=== PATIENT | female | born 1975 | race Caucasian/White ===

== ENCOUNTER → 2017-09-25 | Outpatient (CLI) | payer OTHER | END | disposition home or self-care (01) | LOC: C.LABSPEC 15:52 | PROVIDERS: ATTEND Obstetrics & Gynecology | DX: O09.523 Supervision of elderly multigravida, third trimester (principal) ==

== ENCOUNTER → 2017-09-26 | Outpatient (CLI) | payer OTHER ==
[2017-09-26 11:07] LABS: BASO % 0.2 %; BASO ABS # 0.02 K/uL (0-0.2); EOS % 1.4 %; EOS ABS # 0.15 K/uL (0-0.5); HEMATOCRIT 32.7 % (37-47); HEMOGLOBIN 10.3 g/dL (12.0-16.0); IG# 0.08 K/uL (0.00-0.02); LYMPH ABS # 2.51 K/uL (1.2-3.4); MEAN CELL VOLUME 79.6 fL (80-100); MEAN CORPUSCULAR HEMOGLOBIN 25.1 pg (25-34); MEAN CORPUSCULAR HGB CONC 31.5 g/dl (32-36); MEAN PLATELET VOLUME 10.9 fL (7.4-10.4); MONO % 7.1 %; MONO ABS # 0.78 K/uL (0.11-0.59); NEUT % 67.6 %; NEUT ABS # 7.38 K/uL (1.4-6.5); PLATELET COUNT 318 K/uL (130-400); RED CELL DISTRIBUTION WIDTH CV 16.6 % (11.5-14.5); WHITE BLOOD COUNT 10.92 K/uL (4.8-10.8)
== END | disposition home or self-care (01) ==
LOC: EDSTATUS 09-25 13:18 → C.LAB1850 09-25 16:41 → EDSTATUS 09-25 17:01 → C.LAB1850 09:58
PROVIDERS: ATTEND Obstetrics & Gynecology
DX: O09.523 Supervision of elderly multigravida, third trimester (principal); Z3A.00 Weeks of gestation of pregnancy not specified

== ENCOUNTER 2017-10-09 05:43 | Inpatient (IN) | payer OTHER ==
[~2017-10-09] VITALS: Ht 154.9 cm; Wt 95.0 kg
[2017-10-09] VITALS (11 sets, daily range): BP systolic 104–110; BP diastolic 59–65; PULSE 79–102; TEMP 36.3–37.4; O2SAT 94–97; Ht 154.9 cm; Wt 95.0 kg
[~2017-10-09 05:43] MED LIST: CEFAZOLIN IV 2,000 MG in SYRINGE 0 ML IV SCH; CITRIC ACID/SODIUM CITRATE 15 ML UDC PO SCH; LACTATED RINGER'S 1000ML 1,000 ML IV SCH; PATIENT'S ALLERGY INFO NEEDS ENTERED SCH
[2017-10-09] MEDS ORDERED: CITRIC ACID/SODIUM CITRATE 15 ML UDC PO SCH (06:00)
[2017-10-09] MEDS ORDERED: LACTATED RINGER'S 1000ML 1,000 ML IV SCH ×3 (06:08→12:30)
[2017-10-09] MEDS ORDERED: [UNRECOGNIZED DRUG - REMARK] (06:23)
[2017-10-09] MEDS ORDERED: CEFAZOLIN IV 2,000 MG in SYRINGE 0 ML IV SCH (06:30)
[2017-10-09 06:54] LABS: BASO % 0.2 %; BASO ABS # 0.02 K/uL (0-0.2); EOS % 1.7 %; EOS ABS # 0.18 K/uL (0-0.5); HEMOGLOBIN 9.8 g/dL (12.0-16.0); IG# 0.06 K/uL (0.00-0.02); LYMPH % 25.6 %; LYMPH ABS # 2.64 K/uL (1.2-3.4); MEAN CELL VOLUME 77.9 fL (80-100); MEAN CORPUSCULAR HEMOGLOBIN 24.6 pg (25-34); MEAN CORPUSCULAR HGB CONC 31.6 g/dl (32-36); MEAN PLATELET VOLUME 10.3 fL (7.4-10.4); MONO % 8.1 %; MONO ABS # 0.84 K/uL (0.11-0.59); NEUT % 63.8 %; NEUT ABS # 6.57 K/uL (1.4-6.5); PLATELET COUNT 307 K/uL (130-400); RED CELL DISTRIBUTION WIDTH CV 16.3 % (11.5-14.5); RED CELL DISTRIBUTION WIDTH SD 46.9 fL (36.4-46.3); WHITE BLOOD COUNT 10.31 K/uL (4.8-10.8)
[2017-10-09] MEDS ORDERED: OXYTOCIN INJ 10 UNITS/ML VIAL ONE (07:18)
[2017-10-09] MEDS ORDERED: FENTANYL CITRATE INJ 50 MCG/1 ML 2 ML VIAL ONE (07:20)
[2017-10-09] MEDS ORDERED: MoRPHine SULFATE PF 1 MG/ML 10 ML AMP/VIAL ONE (07:21)
--- NOTE | 2017-10-09 09:32 | HISTORY & PHYSICAL EXAMINATION ---
DATE OF ADMISSION: 10/09/2017 PREOPERATIVE DIAGNOSES: Prior section and pena intrauterine at term. HISTORY OF PRESENT ILLNESS: This is a 42-year-old, G5, P4-0-0-4 who presents with a pena intrauterine at 39 weeks. She has a history of 2 prior sections, both done [facility]; prior vaginal deliveries, both in [place]. This has been complicated by advanced maternal age and maternal smoking of 1 pack per day. ALLERGIES: No known drugs. MEDICATIONS: None. PAST MEDICAL HISTORY: Gallstones. PAST SURGICAL HISTORY: Cholecystectomy and x2. LABORATORY: Blood type A positive, rubella immune, group B Strep negative. PHYSICAL EXAMINATION: VITAL SIGNS: Within normal limits. heart tones are category 1. Toca was quiet. The patient is gravid, in no acute distress. Cervical exam is deferred. ASSESSMENT AND PLAN: A 42-year-old, G5, P4, with 2 prior sections for repeat section at term.
[2017-10-09] MEDS ORDERED: MIDAZOLAM HCL 1 MG/ML 2ML VIAL ONE (11:22)
[2017-10-09] MEDS ORDERED: PHENYLEPHRINE HCL INJ 10 MG/ML VIAL ONE (11:25)
[2017-10-09] MEDS ORDERED: DiphenhydrAMINE HCL 50 MG/ML VIAL ONE (11:27)
[2017-10-09] MEDS ORDERED: [UNRECOGNIZED DRUG - OTHER] IV SCH (11:41)
[2017-10-09] MEDS ORDERED: OXYTOCIN IV SCH (11:41)
--- NOTE | 2017-10-09 11:43 | [facility] Post Operative Brief Note ---
Immediate Operative Summary Operative Date Oct 09, 2017. Pre-Operative Diagnosis Term - Repeat Caesarean Section Post-Operative Diagnosis Same as Pre-op. Procedure(s) Performed Repeat Caesarean Section for a live male infant @ 1109. Surgeon Dr Johnson Pest Controller Surgeon(s) Dr Marin Estimated Blood Loss 700 Findings Consistent with Post-Op Diagnosis Specimens Placenta-HOLD Cord Blood Drains None Anesthesia Type Spinal Complication(s) none Disposition Accompanied Pt To Recover: yes Disposition: L&D
[2017-10-09] MEDS ORDERED: IBUPROFEN 600 MG TAB PO PRN (11:45)
[2017-10-09] MEDS ORDERED: OXYCODONE/ACETAMINOPHEN 5-325 TAB PO PRN ×2 (11:45)
[2017-10-09] MEDS ORDERED: LANOLIN OINT EXT PRN ×2 (11:45)
[2017-10-09] MEDS ORDERED: BENZOCAINE 20% AER SPR 82.5 GM CAN EXT PRN ×2 (11:45)
[2017-10-09] MEDS ORDERED: KETOROLAC TROMETHAMINE 30 MG/ML VIAL IV. PRN (11:45)
[2017-10-09] MEDS ORDERED: HYDROCORTISONE ACETATE 25 MG SUPP PR PRN ×2 (11:45)
[2017-10-09] MEDS ORDERED: SUPERCREAM 0.870 % 15GM JAR EXT PRN ×2 (11:45)
[2017-10-09] MEDS ORDERED: DiphenhydrAMINE HCL 50 MG/ML VIAL IV PRN ×2 (11:45→12:00)
--- NOTE | 2017-10-09 11:48 | [facility] Post Operative Brief Note ---
Immediate Operative Summary Operative Date Oct 09, 2017. Pre-Operative Diagnosis Term - Repeat Caesarean Section Post-Operative Diagnosis Same as Pre-op. Procedure(s) Performed Repeat Caesarean Section for a live male infant @ 1109. Surgeon Dr Johnson Test Tech Surgeon(s) Dr Marin, Dr Aguirre Estimated Blood Loss 700 Findings viable male, normal appearing uterus, fallopian tubes and ovaries Specimens Placenta-HOLD Cord Blood Drains larose Anesthesia spinal Complication(s) None Disposition L&D
[2017-10-09] MEDS ORDERED: NALOXONE HCL INJ 0.08 MG in SYRINGE 1.8 ML IV PRN (11:51)
[2017-10-09] MEDS ORDERED: LACTATED RINGER'S 1000ML 500 ML IV PRN (11:51)
[2017-10-09] MEDS ORDERED: NALOXONE HCL INJ 1 MG in SODIUM CHLORIDE 0.9% 1000ML 1,000 ML IV PRN ×4 (11:51)
[2017-10-09] MEDS ORDERED: SODIUM CHLORIDE 0.9% 1000ML 1,000 ML IV PRN (11:51)
[2017-10-09] MEDS ORDERED: NO NARCOTICS OR SEDATIVES SCH (12:00)
[2017-10-09] MEDS ORDERED: NALBUPHINE HCL INJ 10 MG/ML AMP IV PRN (12:00)
[2017-10-09] MEDS ORDERED: MoRPHine SULFATE PF 1 MG/ML 10 ML AMP/VIAL EPI PRN (12:00)
[2017-10-09] MEDS ORDERED: NALOXONE HCL 0.4 MG/1 ML VIAL/CARP IV PRN (12:00)
[2017-10-09] MEDS ORDERED: ONDANSETRON INJ 2 MG/ML 2 ML VIAL IV PRN (12:00)
[2017-10-09] MEDS ORDERED: ARISTA ABSORBABLE HEMOSTAT 3GM TOP ONE (12:00)
[2017-10-09] MEDS ORDERED: PROMETHAZINE HCL INJ 25 MG in SODIUM CHLORIDE 0.9% 50ML 50 ML IV PRN (12:00)
[2017-10-09] MEDS ORDERED: EpHEDrine SULFATE INJ 50 MG/ML AMP IV PRN (12:00)
[2017-10-09] MEDS ORDERED: NALBUPHINE HCL INJ 10 MG/ML AMP ONE (12:08)
[2017-10-09] MEDS ORDERED: OXYTOCIN INJ 30 UNITS in LACTATED RINGER'S 1000ML 1,000 ML IV SCH (12:15)
[2017-10-09] MEDS: SIMETHICONE 80 MG CHEW PO SCH ×3 (12:30→20:23)
[2017-10-09] MEDS: KETOROLAC TROMETHAMINE 30 MG/ML VIAL IV. PRN (12:44)
--- NOTE | 2017-10-09 12:59 | OPERATIVE REPORT ---
DATE OF OPERATION: 10/09/2017 PREOPERATIVE DIAGNOSES: 1. Moreira intrauterine at term. 2. Repeat low transverse section. POSTOPERATIVE DIAGNOSES: 1. Moreira intrauterine at term. 2. Repeat low transverse section. PROCEDURE: Repeat low transverse section. SURGEON: Erin Johnson MD. GOLD ASSAYER: Dr. Marin. ESTIMATED BLOOD LOSS: 700 mL. FINDINGS: Normal tubes and ovaries bilaterally. SPECIMENS: Placenta for hold and cord blood. DRAINS: None. ANESTHESIA: Spinal. COMPLICATIONS: None. DISPOSITION: Stable to labor and delivery. DESCRIPTION: Kiara is a G5, P4 who was brought to the operating room for a planned repeat section with a at term per dating [place] and provided to us by the patient when she transferred care to our group. The patient was placed on the table in the supine position with a leftward tilt and prepped and draped in standard sterile fashion and a hard time-out was taken prior to proceeding. A Pfannenstiel incision was created. This was carried down sharply through the subcutaneous tissue to the fascia which was incised and then extended using Smith scissors. The fascia was grasped with Valerio's and sharply and bluntly dissected off the underlying rectus both superiorly and inferiorly. The midline was sharply due to significant scarring that was noted to be present. Entry to the abdomen was then made through the peritoneum in a blunt manner. Bladder blade was placed. A large dense adhesion from the anterior abdominal wall to the bladder area was lysed in a sharp cold manner. The bladder blade was then replaced behind this after it was mobilized downward. The actual edge of the bladder was then able to be seen and a bladder flap was briefly created. A lower uterine segment transverse incision was then created with copious clear fluid being encountered after blunt entry made to the uterus. The was delivered using mild fundal pressure. The cord was doubly clamped and cut and the was taken to the warmer. Cord blood was collected. The placenta was then manually extracted. The uterus was exteriorized from the body and cleared of all clot and debris using dry lap sponges and ring forceps. The angles of the hysterotomy were then grasped with Allis clamps and the hysterotomy was repaired in 2-layer fashion using 0 Vicryl suture with a running locked layer followed by an imbricating second layer. An 0 chromic was then used to place a [id number] suture over a small area of oozing towards the left angle of the uterus. Once this was done, the uterus was anteflexed and the posterior gutter was cleared of clot and debris using irrigation and suction. The uterus was then gently replaced to the abdomen. Bovie electrocautery was applied to several small areas of bleeding along the cut edge of the peritoneum and John was then applied for good measure. The uterus then in situ having been well repaired and hemostatic, the rectus was allowed to reapproximate naturally. The fascia was then closed using #1 Vicryl suture in a running nonlocked manner, at the completion of which the fascia was examined and found to be free of defect. The subcutaneous tissue was copiously irrigated that gently reapproximated with 3-0 chromic and the skin was closed using 4-0 Monocryl in a running subcuticular manner. Dermabond dressing was applied and the patient was transferred to recovery in stable condition with a Nagy drain and clear yellow urine. I attest to the content of the Intraoperative Record and any orders documented therein. Any exception s are noted below.
[2017-10-09] MEDS ORDERED: SIMETHICONE 80 MG CHEW PO SCH (13:00)
--- NOTE | 2017-10-09 14:42 | Anesthesiology Progress Note ---
Anesthesia Post Op Note Date & Time Oct 09, 2017 at 14:41 Vital Signs Pain Intensity: 3.0 Notes Mental Status: alert / awake / arousable, participated in evaluation Pt Amnestic to Procedure: No Nausea / Vomiting: adequately controlled Pain: adequately controlled Airway Patency, RR, SpO2: stable & adequate BP & HR: stable & adequate Hydration State: stable & adequate Neuraxial Anesthesia: was administered, sensory block is resolving Anesthetic Complications: no major complications apparent
[2017-10-09] MEDS ORDERED: DOCUSATE SODIUM 100 MG CAP PO SCH (20:00)
[2017-10-09] MEDS: DOCUSATE SODIUM 100 MG CAP PO SCH (20:23)
[2017-10-10] VITALS (10 sets, daily range): BP systolic 94–113; BP diastolic 56–66; PULSE 88–104; TEMP 36.7–37.3; O2SAT 92–98
[2017-10-10] MEDS: KETOROLAC TROMETHAMINE 30 MG/ML VIAL IV. PRN (02:00)
[2017-10-10] MEDS ORDERED: KETOROLAC TROMETHAMINE 30 MG/ML VIAL IV. PRN (06:00)
[2017-10-10] MEDS ORDERED: ONDANSETRON INJ 2 MG/ML 2 ML VIAL IV PRN (06:00)
[2017-10-10] MEDS ORDERED: MEPERIDINE HCL 50 MG/ML CARP IV PRN ×2 (06:00)
[2017-10-10] MEDS ORDERED: DiphenhydrAMINE HCL 50 MG/ML VIAL IV PRN (06:00)
[2017-10-10] MEDS ORDERED: OXYCODONE/ACETAMINOPHEN 5-325 TAB PO PRN (06:00)
[2017-10-10] MEDS ORDERED: PROMETHAZINE HCL INJ 25 MG in SODIUM CHLORIDE 0.9% 50ML 50 ML IV PRN (06:00)
[2017-10-10] MEDS ORDERED: DC INTRASPINAL MORPHINE ONE (06:00)
[2017-10-10 06:48] LABS: BASO % 0.1 %; BASO ABS # 0.01 K/uL (0-0.2); EOS % 1.5 %; EOS ABS # 0.16 K/uL (0-0.5); HEMOGLOBIN 7.5 g/dL (12.0-16.0); IG# 0.04 K/uL (0.00-0.02); LYMPH % 14.4 %; LYMPH ABS # 1.55 K/uL (1.2-3.4); MEAN CELL VOLUME 77.9 fL (80-100); MEAN CORPUSCULAR HEMOGLOBIN 24.4 pg (25-34); MEAN CORPUSCULAR HGB CONC 31.3 g/dl (32-36); MEAN PLATELET VOLUME 10.5 fL (7.4-10.4); MONO % 9.1 %; MONO ABS # 0.98 K/uL (0.11-0.59); NEUT % 74.5 %; NEUT ABS # 8.05 K/uL (1.4-6.5); PLATELET COUNT 250 K/uL (130-400); RED CELL DISTRIBUTION WIDTH CV 16.5 % (11.5-14.5); WHITE BLOOD COUNT 10.79 K/uL (4.8-10.8)
--- NOTE | 2017-10-10 06:54 | Progress Note ---
Subjective Oct 10, 2017. Subjective conversation w/ patient, physical exam, chart review, lab review Ambulation: limited ambulation Voiding: no voiding problems Passing Gas: Yes Diet Tolerance: Regular Diet Lochia: Moderate Feeding Type: Breast Feeding Review of Systems Constitutional: No fever, No chills Respiratory: No cough, No shortness of breath Cardiac: No chest pain, No palpitations Abdomen: No pain, No nausea, No vomiting Female : No dysuria Objective Vital Signs Date Time Temp Pulse Resp B/P (MAP) Pulse Ox O2 Delivery O2 Flow Rate FiO2 10/10/17 06:01 16 94 10/10/17 05:10 16 94 10/10/17 04:30 36.7 88 16 94/56 (69) 94 Room Air 10/10/17 04:00 16 92 10/10/17 03:00 16 94 10/10/17 02:00 16 94 10/10/17 01:00 16 92 10/10/17 00:00 16 93 10/09/17 23:50 37.4 102 16 110/65 (80) 95 Room Air 10/09/17 23:50 95 Room Air 10/09/17 23:00 16 95 10/09/17 22:00 14 95 10/09/17 21:00 16 95 10/09/17 20:20 37.2 98 16 104/64 (77) 97 Room Air 10/09/17 20:00 16 97 10/09/17 19:00 18 97 10/09/17 18:00 18 94 10/09/17 17:00 18 94 10/09/17 16:00 18 96 10/09/17 15:00 36.6 79 20 110/59 (76) 95 Room Air 10/09/17 15:00 36.6 79 20 110/59 (76) 95 Room Air 10/09/17 15:00 95 Room Air 10/09/17 15:00 95 Room Air 10/09/17 15:00 20 95 Physical Exam General Appearance: WELL-APPEARING, WD/WN, NO APPARENT DISTRESS Respiratory/Chest: lungs clear, no respiratory distress Cardiovascular: regular rate, rhythm, no murmur Abdomen: non tender, soft Fundus: Firm, Relation to Umbilicus (2cm below u) Incision Description: Clean, Dry & Intact Extremities: non-tender, normal inspection Laboratory Results Last 24 Hours Test 10/10/17 06:16 Medications Current Inpatient Medications Medications (Trade) Dose Ordered Sig/Doreen Route Start Time Stop Time Status Last Admin Dose Admin Lactated Ringer's 1,000 ml @ 1,000 mls/hr Q1H IV 10/09/17 06:08 11/08/17 06:07 10/09/17 06:22 1,000 MLS/HR Lactated Ringer's 1,000 ml @ 125 mls/hr Q8H IV 10/09/17 12:30 11/08/17 12:29 10/09/17 21:42 125 MLS/HR Ketorolac Tromethamine (Toradol Inj) 30 mg Q6H PRN IV. 10/10/17 06:00 10/15/17 05:59 Meperidine HCl (Demerol Inj) 50 mg Q4H PRN IV 10/10/17 06:00 10/24/17 05:59 Meperidine HCl (Demerol Inj) 75 mg Q4H PRN IV 10/10/17 06:00 10/24/17 05:59 Oxycodone/ Acetaminophen (Percocet 5-325mg Tab) 1 tab Q4H PRN PO 10/10/17 06:00 10/24/17 05:59 Oxycodone/ Acetaminophen (Percocet 5-325mg Tab) 2 tab Q4H PRN PO 10/10/17 06:00 10/24/17 05:59 Ibuprofen (Motrin Tab) 600 mg Q4H PRN PO 10/09/17 11:45 11/08/17 11:44 Promethazine HCl 25 mg/Sodium Chloride 51 ml @ 204 mls/hr Q4H PRN IV 10/10/17 06:00 11/09/17 05:59 Ondansetron HCl (Zofran Inj) 4 mg Q4H PRN IV 10/10/17 06:00 11/09/17 05:59 Prenat Multivit/ [place]/Iron/Folic Ac ( Vitamin Tab) 1 tab DAILY PO 10/10/17 08:00 11/09/17 07:59 Docusate Sodium (coLACE CAP) 100 mg BID PO 10/09/17 20:00 11/08/17 19:59 10/09/17 20:23 100 MG Cocaine HCl (Supercream 0.870% Cr) BID PRN EXT 10/09/17 11:45 10/23/17 11:44 Lanolin (Lanolin Oint) PRN PRN EXT 10/09/17 11:45 11/08/17 11:44 Hydrocortisone Acetate (Anusol Hc Supp) 25 mg BID PRN MD 10/09/17 11:45 11/08/17 11:44 Benzocaine (Dermoplast Aero Spr) 1 appln PRN PRN EXT 10/09/17 11:45 11/08/17 11:44 Simethicone (Mylicon Chew Tab) 80 mg QID PO 10/09/17 13:00 11/08/17 12:59 10/09/17 20:23 80 MG Diphenhydramine HCl (Benadryl Cap) 25 mg QID PRN PO 10/10/17 06:00 11/09/17 05:59 Diphenhydramine HCl (Benadryl Inj) 25 mg QID PRN IV 10/10/17 06:00 11/09/17 05:59 Assessment and Plan Post-Op Day#: 1 Continue Routine Care: 42, F, , A+/GBS-/RI postop day 1. Reviewed vitals; BP 95/5, HR 95-100. Patient's ambulation is limited since the procedure. Patient was able to tolerate soup last night-->will advance diet this am. Patient reports that her pain is well controlled. Nagy was removed this am, no urination on her own. She had approx 1 L output over 24hours. Will continue to follow I/O. Plan; 1. Recovery from Csection--cont. pp care; ambulate, support BF, monitor lochia, control pain. Resident Physician Supervision Note: I interviewed and examined the patient. Discussed with Dr. Aguirre and agree with findings and plan as documented in the note. Any exceptions or clarifications are listed here: [None] Documented By: Erin Johnson
[2017-10-10] MEDS ORDERED: PRENTAB26 PO (07:12)
--- NOTE | 2017-10-10 07:14 | Discharge Instructions ---
Discharge Instructions Date of Service Oct 10, 2017. Admission Reason for Admission: Previous Section Discharge Discharge Diagnosis / Problem: c section Discharge Goals Goal(s): Routine recovery after Medications Continue Dispensed Medications: supercream, dermaplast, tucks, lansinoh Activity Recommendations Activity Limitations: per Instructions/Follow-up section . Instructions / Follow-Up Instructions / Follow-Up ACTIVITY RECOMMENDATIONS: * Gradual return to full activity over the next 2-3 weeks. * No lifting - nothing heavier than baby over the next 2-3 weeks. * Do not engage in vigorous exercise, sexual activity or sports until cleared by your physician. * Do not drive or operate any motorized equipment until cleared by your physician. * You may shower/bathe daily. MEDICATIONS: For discomfort or pain, you may use Acetaminophen (Tylenol), Ibuprofen (Advil), or Naproxen (Aleve) following the package directions. For constipation you may use Colace following the package directions. BREAST CARE: If you are not breast feeding: * Wear a supportive bra 24 hours a day for one to two weeks. * Avoid stimulating your breasts and nipples as much as possible during the first few weeks after delivery. * When taking a shower, have the warm water hit your back, not breasts. * When your breasts feel full, apply ice packs. Usually three to four times a day helps ease the discomfort. * Take a mild pain medication (Tylenol / Motrin) when you are uncomfortable. If breast feeding: * Use breast milk to lubricate nipples. Lansinoh cream may be used for sore nipples. You do not need to remove cream prior to breast feeding. If using a different brand of cream, check the label for directions regarding removal of cream prior to nursing. * Wear a supportive bra. * If having problems with breasts or breast feeding, call a architectural sales consultant or your health care provider. SPECIAL CARE INSTRUCTIONS: When you are discharged from the hospital, it is important for you to follow the instructions listed below: * During the first week at home, you should be able to care for yourself and your baby. In addition, the usual light household activities are encouraged. * Limit your activities to the way you feel. Do not try to clean the house or move furniture. Be sensible. * If you actively engage in sports and have done so up until the time of your delivery, you may resume these activities as soon as you feel able. This may take up to one month or even longer. Use good judgment. * Continue to take your vitamins for at least six weeks after the of your baby. * Your diet need not be limited unless you were on a special diet before your delivery. Breast-feeding mothers need around 2500 calories per day and at least 64-80 ounces of fluid per day (8 to 10 glasses). * You should eat foods from the four major food groups. Crash diets or fad diets are to be avoided. Eating lean meats, fresh fruits and vegetables, low-fat dairy products, high fiber foods and a regular exercise program, will help you get back to your pre- weight without putting your health at risk. * Constipation is sometimes a problem after delivery. Take a mild laxative as needed. If breast feeding, Milk of Magnesia is acceptable to use. You may use a suppository or Fleets enema. * A daily shower or tub bath is suggested. Wash incision daily with warm soapy water and pat dry. It doesn't need to be covered unless drainage is present. * A bloody vaginal discharge will usually continue until around four weeks . A small amount of bleeding may continue for as long as six weeks. Vaginal discharge changes from the bright red bleeding after delivery to pink then brownish and finally yellowish-pink before becoming white and disappearing. * Bleeding may increase with activity. Your first period may come in 4-8 weeks. If you are breast feeding, your period may be delayed even longer. * [place] (sex) can begin whenever both you and your partner feel comfortable and do not have any form of genital infection. It is recommended that you wait at least six weeks for internal and external healing to occur. If you have questions, please talk to your health care practitioner. A condom should be used to prevent infection and . * Foreplay, gentle intercourse and lubrication is very important the first several times to prevent pain. A water-based lubricant such as K-Y jelly or Astroglide may be used. * If you have RH negative blood and your baby is RH positive, you will receive RHOGAM by injection prior to discharge. The nurse will give you a card to keep with you that has the date and place that you received RHOGAM after delivery. * During your care, you had a Rubella screen done to check for the presence of rubella antibodies in your blood. If your test was negative, you will receive a Rubella vaccine prior to discharge. This vaccine may cause a fever, soreness at the injection site and flu-like symptoms. If these symptoms persist, notify your health care practitioner. is not advised for one month after a Rubella vaccine. * Verbalizes understanding of car seat law as reviewed with patient nursing. * Car Seat hand-out given and reviewed with patient by nursing. * Shaken baby information reviewed with patient by nursing. Call you doctor if: * Heavy bleeding (saturating several pads an hour) or passing clots the size of your fist. * A fever >101 degrees F (38.3 degrees C) on two occasions four hours apart and /or chills. * Unusual pain in the pelvic or vaginal areas. * Call the doctor for any increased redness, drainage or swelling around the incision and any pain unrelieved by prescribed pain medication. * "Baby Blues" lasting longer than two weeks. If you have any questions or concerns, call your health care practitioner at . FOLLOW UP VISIT: * Please call the office at to schedule a 6 week examination. It is important you keep this appointment. It is important for you to make arrangements for either yearly or twice yearly check-ups thereafter. Current Hospital Diet Patient's current hospital diet: Regular OB Diet Discharge Diet Recommended Diet: Regular Diet, Regular OB Diet Procedures Procedures Performed: Repeat Caesarean Section for a live male @ 1109. Pending Studies Studies pending at discharge: no Medical Emergencies . Who to Call and When: Medical Emergencies: If at any time you feel your situation is an emergency, please call [phone] immediately. . Non-Emergent Contact Non-Emergency issues call your: Primary Care Provider, Phonograph Needle Tip Maker . . "Provider Documentation" section prepared by Alvarado Aguirre. .
[2017-10-10] MEDS: OXYCODONE/ACETAMINOPHEN 5-325 TAB PO PRN ×3 (07:55→21:34)
[2017-10-10] MEDS: SIMETHICONE 80 MG CHEW PO SCH ×4 (07:55→19:46)
[2017-10-10] MEDS: PRENATAL VITAMIN TAB PO SCH (07:55)
[2017-10-10] MEDS: IBUPROFEN 600 MG TAB PO PRN ×3 (07:55→21:33)
[2017-10-10] MEDS: DOCUSATE SODIUM 100 MG CAP PO SCH ×2 (07:56→19:46)
[2017-10-10] MEDS ORDERED: PRENATAL VITAMIN TAB PO SCH (08:00)
[2017-10-11 00:15] VITALS: BP 101/55; PULSE 93; TEMP 37.1; O2SAT 99
[2017-10-11] MEDS: IBUPROFEN 600 MG TAB PO PRN ×4 (02:43→23:49)
[2017-10-11] MEDS: OXYCODONE/ACETAMINOPHEN 5-325 TAB PO PRN ×5 (02:44→23:49)
--- NOTE | 2017-10-11 06:49 | Progress Note ---
Subjective Oct 11, 2017. Subjective conversation w/ patient, physical exam, chart review, lab review Ambulation: ambulating normally Voiding: no voiding problems Passing Gas: Yes Diet Tolerance: Regular Diet Lochia: Moderate Feeding Type: Breast Feeding Review of Systems Constitutional: No fever, No chills Respiratory: No cough, No shortness of breath Cardiac: No chest pain, No palpitations Abdomen: No pain, No nausea, No vomiting Female : No dysuria Objective Vital Signs Date Time Temp Pulse Resp B/P (MAP) Pulse Ox O2 Delivery O2 Flow Rate FiO2 10/11/17 00:15 Room Air 10/11/17 00:15 37.1 93 18 101/55 (70) 99 Room Air 10/10/17 16:00 37.3 104 16 113/66 (82) 98 Room Air 10/10/17 16:00 98 Room Air 10/10/17 08:00 Room Air 10/10/17 08:00 37.2 89 20 99/61 (74) 98 Room Air Physical Exam General Appearance: WELL-APPEARING, WD/WN, NO APPARENT DISTRESS Respiratory/Chest: lungs clear, no respiratory distress Cardiovascular: regular rate, rhythm, no murmur Abdomen: non tender, soft Fundus: Firm, Relation to Umbilicus (at the level of the umbilicus ) Incision Description: Clean, Dry & Intact Extremities: non-tender, normal inspection Laboratory Results Last 24 Hours Test 10/11/17 06:10 Medications Current Inpatient Medications Medications (Trade) Dose Ordered Sig/Doreen Route Start Time Stop Time Status Last Admin Dose Admin Lactated Ringer's 1,000 ml @ 1,000 mls/hr Q1H IV 10/09/17 06:08 11/08/17 06:07 10/09/17 06:22 1,000 MLS/HR Lactated Ringer's 1,000 ml @ 125 mls/hr Q8H IV 10/09/17 12:30 11/08/17 12:29 10/09/17 21:42 125 MLS/HR Ketorolac Tromethamine (Toradol Inj) 30 mg Q6H PRN IV. 10/10/17 06:00 10/15/17 05:59 Meperidine HCl (Demerol Inj) 50 mg Q4H PRN IV 10/10/17 06:00 10/24/17 05:59 Meperidine HCl (Demerol Inj) 75 mg Q4H PRN IV 10/10/17 06:00 10/24/17 05:59 Oxycodone/ Acetaminophen (Percocet 5-325mg Tab) 1 tab Q4H PRN PO 10/10/17 06:00 10/24/17 05:59 10/11/17 02:44 1 TAB Oxycodone/ Acetaminophen (Percocet 5-325mg Tab) 2 tab Q4H PRN PO 10/10/17 06:00 10/24/17 05:59 Ibuprofen (Motrin Tab) 600 mg Q4H PRN PO 10/09/17 11:45 11/08/17 11:44 10/11/17 02:43 600 MG Promethazine HCl 25 mg/Sodium Chloride 51 ml @ 204 mls/hr Q4H PRN IV 10/10/17 06:00 11/09/17 05:59 Ondansetron HCl (Zofran Inj) 4 mg Q4H PRN IV 10/10/17 06:00 11/09/17 05:59 Prenat Multivit/ [place]/Iron/Folic Ac ( Vitamin Tab) 1 tab DAILY PO 10/10/17 08:00 11/09/17 07:59 10/10/17 07:55 1 TAB Docusate Sodium (coLACE CAP) 100 mg BID PO 10/09/17 20:00 11/08/17 19:59 10/10/17 19:46 100 MG Cocaine HCl (Supercream 0.870% Cr) BID PRN EXT 10/09/17 11:45 10/23/17 11:44 Lanolin (Lanolin Oint) PRN PRN EXT 10/09/17 11:45 11/08/17 11:44 Hydrocortisone Acetate (Anusol Hc Supp) 25 mg BID PRN NC 10/09/17 11:45 11/08/17 11:44 Benzocaine (Dermoplast Aero Spr) 1 appln PRN PRN EXT 10/09/17 11:45 11/08/17 11:44 Simethicone (Mylicon Chew Tab) 80 mg QID PO 10/09/17 13:00 11/08/17 12:59 10/10/17 19:46 80 MG Diphenhydramine HCl (Benadryl Cap) 25 mg QID PRN PO 10/10/17 06:00 11/09/17 05:59 10/10/17 08:16 25 MG Diphenhydramine HCl (Benadryl Inj) 25 mg QID PRN IV 10/10/17 06:00 11/09/17 05:59 Assessment and Plan Post-Op Day#: 2 Continue Routine Care: 42, F, , A+/GBS-/RI postop day 2. Reviewed vitals; WNL. Patient is ambulating well. Hgb was 7.5 on 10/11. No signs and sx of severe anemia. Plan; 1. Recovery from Csection--cont. pp care; ambulate, support BF, monitor lochia, control pain. 2. Discussed discharge planning with the patient Resident Physician Supervision Note: I interviewed and examined the patient. Discussed with Dr. Aguirre and agree with findings and plan as documented in the note. Any exceptions or clarifications are listed here: Continued routine post-op care Documented By: Andrew Garnett
[2017-10-11 07:17] LABS: HEMATOCRIT 23.3 % (37-47); HEMOGLOBIN 7.4 g/dL (12.0-16.0)
[2017-10-11] MEDS ORDERED: POLYETHYLENE (MIRALAX) 17 GM PACK PO PRN (07:30)
[2017-10-11] MEDS ORDERED: BISACODYL 5 MG TABEC PO PRN (07:45)
[2017-10-11] MEDS ORDERED: BISACODYL 10 MG SUPP PR PRN (07:45)
[2017-10-11] MEDS ORDERED: MAGNESIUM HYDROXIDE SUSP 30 ML UDC PO PRN (07:45)
[2017-10-11 08:00] VITALS: BP 100/58; PULSE 89; TEMP 36.7
[2017-10-11] MEDS: DOCUSATE SODIUM 100 MG CAP PO SCH ×2 (08:29→19:33)
[2017-10-11] MEDS: PRENATAL VITAMIN TAB PO SCH (08:29)
[2017-10-11] MEDS: SIMETHICONE 80 MG CHEW PO SCH ×4 (08:29→19:33)
[2017-10-11 15:30] VITALS: BP 113/63; PULSE 88; TEMP 37.1; O2SAT 97; O2SAT 98
[2017-10-11 23:50] VITALS: BP 107/65; PULSE 92; TEMP 37
--- NOTE | 2017-10-12 07:00 | Progress Note ---
Subjective Oct 12, 2017. Subjective conversation w/ patient, physical exam, chart review, lab review Ambulation: ambulating normally Voiding: no voiding problems Passing Gas: Yes Diet Tolerance: Regular Diet Lochia: Small Feeding Type: Breast Feeding Review of Systems Constitutional: No fever, No chills Respiratory: No cough, No shortness of breath Cardiac: No chest pain, No palpitations Abdomen: No pain, No nausea, No vomiting Female : No dysuria Objective Vital Signs Date Time Temp Pulse Resp B/P (MAP) Pulse Ox O2 Delivery O2 Flow Rate FiO2 10/11/17 23:50 Room Air 10/11/17 23:50 37.0 92 18 107/65 (79) Room Air 10/11/17 15:30 97 Room Air 10/11/17 15:30 37.1 88 16 113/63 (80) 98 Room Air 10/11/17 08:00 36.7 89 18 100/58 (72) Room Air Physical Exam General Appearance: WELL-APPEARING, WD/WN, NO APPARENT DISTRESS Respiratory/Chest: lungs clear, no respiratory distress Cardiovascular: regular rate, rhythm, no murmur Abdomen: non tender, soft Fundus: Firm Incision Description: Clean, Dry & Intact Extremities: non-tender, normal inspection Assessment and Plan Post-Op Day#: 3 Continue Routine Care: 42, F, , A+/GBS-/RI postop day 3. Reviewed vitals; WNL. Patient is ambulating well. Hgb was 7.4 on 10/11. No signs and sx of severe anemia. Plan; 1. Recovery from Csection--cont. pp care; ambulate, support BF, monitor lochia, control pain. 2. Discussed discharge planning with the patient Resident Physician Supervision Note: I interviewed and examined the patient. Discussed with Dr. Aguirre and agree with findings and plan as documented in the note. Any exceptions or clarifications are listed here: [None] Documented By: Shola Leger
[2017-10-12] MEDS ORDERED: MTR600X PO (07:09)
[2017-10-12] MEDS ORDERED: OXYC-57 PO (07:09)
[2017-10-12] MEDS: IBUPROFEN 600 MG TAB PO PRN (07:35)
[2017-10-12] MEDS: OXYCODONE/ACETAMINOPHEN 5-325 TAB PO PRN (07:37)
[2017-10-12] MEDS: DOCUSATE SODIUM 100 MG CAP PO SCH (07:37)
[2017-10-12] MEDS: SIMETHICONE 80 MG CHEW PO SCH (07:37)
[2017-10-12] MEDS: PRENATAL VITAMIN TAB PO SCH (07:37)
[2017-10-12 08:40] VITALS: BP 111/59; PULSE 87; TEMP 36.7
[2017-10-12 10:30] VITALS: BP_DIAS 59; PULSE 87; TEMP 36.7
== END 2017-10-12 10:40 | disposition home or self-care (01) | DRG 766 ==
LOC: C.LD 05:43 → EDSTATUS 09:15 → C.OBG 15:14
PROVIDERS: ADMIT Obstetrics & Gynecology; ATTEND Obstetrics & Gynecology
PROC: 10D00Z1 Extraction of Products of Conception, Low, Open Approach (ICD-10-PCS; principal; 2017-10-09 07:30)
DX: O34.219 Maternal care for unspecified type scar from previous cesarean delivery (principal); O99.334 Smoking (tobacco) complicating childbirth; O09.523 Supervision of elderly multigravida, third trimester; Z37.0 Single live birth; Z3A.39 39 weeks gestation of pregnancy

== ENCOUNTER → 2017-11-11 | Outpatient (CLI) | payer OTHER ==
[~2017-11-11] MED LIST changes: -CEFAZOLIN IV 2,000 MG in SYRINGE 0 ML IV SCH; -CITRIC ACID/SODIUM CITRATE 15 ML UDC PO SCH; -LACTATED RINGER'S 1000ML 1,000 ML IV SCH; +MTR600X PO; +OXYC-57 PO; -PATIENT'S ALLERGY INFO NEEDS ENTERED SCH; +PRENTAB26 PO; +[UNRECOGNIZED DRUG - REMARK]
--- NOTE | 2017-11-11 09:44 | DIAGNOSTIC IMAGING REPORT ---
L-SPINE MIN 4 VIEWS ROUTINE CLINICAL HISTORY: M79.606 Leg [id number] COMPARISON STUDY: No previous studies for comparison. FINDINGS: There is a mild levoscoliosis. No fractures or subluxations are visualized. No destructive lesions are evident. IMPRESSION: Minor levoscoliosis. No fractures, subluxations, or destructive lesions are visualized Electronically signed by: Moose Menjivar M.D. 11/11/2017 9:42 AM Dictated Date/Time: 11/11/2017 9:39 AM
[2017-11-11 10:14] LABS: BASO % 0.4 %; BASO ABS # 0.03 K/uL (0-0.2); EOS % 3.3 %; EOS ABS # 0.25 K/uL (0-0.5); HEMATOCRIT 38.6 % (37-47); IG# 0.01 K/uL (0.00-0.02); LYMPH % 33.9 %; MEAN CELL VOLUME 76.9 fL (80-100); MEAN CORPUSCULAR HEMOGLOBIN 23.9 pg (25-34); MEAN CORPUSCULAR HGB CONC 31.1 g/dl (32-36); MEAN PLATELET VOLUME 12.1 fL (7.4-10.4); MONO % 6.4 %; MONO ABS # 0.49 K/uL (0.11-0.59); NEUT % 55.9 %; NEUT ABS # 4.29 K/uL (1.4-6.5); PLATELET COUNT 264 K/uL (130-400); RED CELL DISTRIBUTION WIDTH CV 16.9 % (11.5-14.5); RED CELL DISTRIBUTION WIDTH SD 47.4 fL (36.4-46.3); WHITE BLOOD COUNT 7.67 K/uL (4.8-10.8)
[2017-11-11 10:28] LABS: ALBUMIN 3.6 gm/dl (3.4-5.0); ALT/SGPT 25 U/L (12-78); AST/SGOT 13 U/L (15-37); BLOOD UREA NITROGEN 13 mg/dl (7-18); CALCIUM 8.6 mg/dl (8.5-10.1); CARBON DIOXIDE 26 mmol/L (21-32); CREATININE 0.56 mg/dl (0.60-1.20); GLUCOSE 97 mg/dl (70-99); SODIUM 139 mmol/L (136-145)
[2017-11-11 10:39] LABS: ALKALINE PHOSPHATASE 58 U/L (45-117); CHOLESTEROL 238 mg/dl (0-200); LDL CHOLESTEROL CALCULATED 122 mg/dl; TOTAL PROTEIN 7.5 gm/dl (6.4-8.2)
== END | disposition home or self-care (01) ==
LOC: C.RAD1850 09:08
PROVIDERS: ATTEND Physician Assistant
DX: Z13.220 Encounter for screening for lipoid disorders (principal); M79.606 Pain in leg, unspecified; R53.83 Other fatigue; E53.8 Deficiency of other specified B group vitamins; E55.9 Vitamin D deficiency, unspecified